=== PATIENT | male | born 1970 | race Caucasian/White ===

== ENCOUNTER 2017-02-10 07:50 | Day surgery (SDC) | payer BC ==
[~2017-02-10 07:50] MED LIST: ACETAMINOPHEN 1,000 MG/100 ML BTL IV ONE; CEFAZOLIN 1 Gram 1 GM/50 ML BAG IVPB ONE
[2017-02-10] MEDS ORDERED: BUPIVACAINE 0.25% W/EPI MPF 30ML VIAL IVP ONE (15:54)
[2017-02-10] MEDS ORDERED: HYDROCODONE/APAP 5/325MG TABLET PO ONE (15:54)
[2017-02-10] MEDS ORDERED: ALPRAZOLAM 1 MG TAB PO ONE (15:54)
[2017-02-10] MEDS ORDERED: MIDAZOLAM HCL 2MG/2ML VIAL IV ONE (16:14)
[2017-02-10] MEDS ORDERED: FENTANYL PF 100MCG/2ML VIAL IV ONE (16:14)
[2017-02-10] MEDS ORDERED: PROPOFOL 10 MG/ML VIAL IV ONE (16:14)
[2017-02-10] MEDS ORDERED: LIDOCAINE 2% MDV (20MG/ML) 20ML VIAL IV ONE (16:14)
[2017-02-10] MEDS ORDERED: *PACU ONLY* KETAMINE HCL 10 MG/ML (20ML) VIAL IV ONE (16:14)
--- NOTE | 2017-02-11 14:40 | Operative Note ---
DATE OF SURGERY: 02/10/2017 Surgeon: Robert Zhang DO PREOPERATIVE DIAGNOSIS: Left axillary mass. POSTOPERATIVE DIAGNOSIS: Left axillary mass. OPERATION: Excision of a left axillary mass. Indication: The patient is a 46-year-old male who presented to the clinic with an enlarging mass in his left axilla. This had the appearance of a probable lipoma. Imaging studies did support the same. We did discuss excision; risks, benefits, and alternatives. Risks include bleeding, infection, recurrence. He understood this fully. The patient was taking chronic narcotics; therefore, postop pain control was discussed. I let him know that I would not give him anything stronger than his 10 mg of hydrocodone that he takes 3-4 times a day. PROCEDURE: Therefore, after consent was signed and questions answered, the patient was taken to the operating room and placed in a supine position. Local and IV sedation was given per the department of anesthesia. The patient's left axillary region was shaved of hair and prepped and draped in the usual fashion. The area with the open mass was anesthetized with a total of 4 mL of 0.25% Sensorcaine with epinephrine. A 4 cm incision was made. This was carried down through the subcutaneous tissues to the capsule of the lipoma. This was dissected free from surrounding tissue and passed off the field. The wound was then closed with 3-0 and 4-0 Vicryl. He tolerated the procedure well. Final pathology pending. FINDINGS AT THE TIME OF SURGERY: A 4 x 3 cm subcutaneous mass under the subcu. CC: ITZ SAMANO MD, FACP [facility]
== END 2017-02-10 12:10 | disposition home or self-care (01) ==
LOC: SUR 07:50
PROVIDERS: ATTEND Surgery
DX: D17.1 Benign lipomatous neoplasm of skin and subcutaneous tissue of trunk (principal); I10 Essential (primary) hypertension
CPT/HCPCS: 11406; 12032; 00300; J3010; J0690

== ENCOUNTER 2017-04-17 12:04 | Day surgery (SDC) | payer BC ==
[2017-04-17] MEDS ORDERED: LIDOCAINE 2% MDV (20MG/ML) 20ML VIAL IV ONE (12:05)
[2017-04-17] MEDS ORDERED: PROPOFOL 10 MG/ML VIAL IV ONE (12:05)
[2017-04-17] MEDS ORDERED: FENTANYL PF 100MCG/2ML VIAL IV ONE (12:05)
--- NOTE | 2017-04-18 12:40 | Operative Note ---
DATE OF SURGERY: 04/17/2017 OPERATION: COLONOSCOPY with random biopsy. PREOPERATIVE DIAGNOSIS: Diarrhea, hematochezia. POSTOPERATIVE DIAGNOSES: 1. Rule out microscopic colitis. 2. Internal hemorrhoids. PREPARATION QUALITY: Good. ESTIMATED BLOOD LOSS: Minimal. SPECIMENS: Right colon and left colon. COMPLICATIONS: None apparent. PROCEDURE: After informed consent was obtained from the patient, he was placed in the left lateral decubitus position in the endoscopy suite, sedated and monitored by the department of anesthesia. Digital rectal examination was unremarkable. A well-lubricated [id number] colonoscope was inserted into the rectum and advanced to the cecum. The cecum, terminal ileum, ascending colon, transverse colon, descending colon, sigmoid colon, and rectum were carefully inspected. Random biopsies were obtained from the right colon and left colon. There was perhaps some very mild subtle loss of vascularity in the descending colon but that may have been partially due to some residual mucus that was adherent to the mucosa. Despite rinsing, there were very perhaps subtle changes noted as aforementioned. The rectum was unremarkable in forward views. J-turn views did reveal some mildly enlarged internal hemorrhoids. The endoscope was straightened, the rectal ampulla deflated, and the endoscope was removed. RECOMMENDATIONS: We will check celiac antibodies and await the results of biopsies. Would recommend a repeat colonoscopy in 10 years. As always, thank you for allowing me to participate in the healthcare of your patients. CC: ITZ SAMANO MD, FACP [facility]
== END 2017-04-17 14:05 | disposition home or self-care (01) ==
LOC: HOP 12:04 → LAB 14:05
PROVIDERS: ATTEND Internal Medicine Gastroenterology
DX: K92.1 Melena (principal); R19.7 Diarrhea, unspecified; K64.8 Other hemorrhoids; I10 Essential (primary) hypertension
CPT/HCPCS: 45380; 00810; J3010

== ENCOUNTER 2019-06-15 02:04 | Observation (INO) | payer BC ==
[2019-06-15] MEDS ORDERED: 0.9 % SODIUM CHLORIDE 1,000 ML BAG IV ONE (02:09)
[2019-06-15] MEDS ORDERED: KETOROLAC 30 MG/ML VIAL IVP ONE (02:09)
[2019-06-15] MEDS ORDERED: MORPHINE SULFATE 5 MG/ML VIAL IVP ONE ×3 (02:09→04:03)
--- NOTE | 2019-06-15 02:14 | Emergency Department Record ---
History of Present Illness - General Chief Complaint: Pain Stated Complaint: RIB PAIN Time Seen by Provider: 06/15/19 02:08 Source: Patient Mode of Arrival: Ambulatory Limitations: No limitations - History of Present Illness Initial Comments: 48 yo male presents with left rib pain. He reports has a chronic cough. The cough has been on going for about 3 years. He frequently coughs so hard he vomits. On Friday at 3pm he was coughing and sneezed simultaneously. He felt a pop over the left lower ribs. He has had pain in this area since then. The p ain has gradually been worsening. He has pain with any movement, breathing, coughing or changes of position. No fever. No hemoptysis. No abdominal pain. He has had the cough for years. His PCP has informed him he thinks it allergy related. MD Complaint: Chest pain (Left rib) -: Days(s) Onset: Other (With coughing) Pain Location: Left chest Severity: Severe Quality: Aching Consistency: Constant Improves With: Remaining still Worsens With: Inspiration, Movement, Palpation Context: Other Anginal Symptoms: Other Other Symptoms: Cough Treatments Prior to Arrival: Other - Related Data Home Medications Medication Instructions Recorded Confirmed Last Taken Amlodipine Besylate [Norvasc] 10 mg PO DAILY 06/15/19 06/15/19 06/14/19 Cholecalciferol (Vitamin D3) 2,000 unit PO DAILY 06/15/19 06/15/19 06/14/19 [Vitamin D3] Hydrocodone/Acetaminophen 1 tab PO Q4HR PRN 06/15/19 06/15/19 06/15/19 [Hydrocodone/Acetaminophen 10mg/325mg] Omeprazole 20 mg PO BID 06/15/19 06/15/19 06/14/19 Allergies Allergy/AdvReac Type Severity Reaction Status Date / Time No Known Drug Allergies Allergy Verified 02/03/17 16:02 Review of Systems Constitutional: Denies: Chills, Fever, Malaise, Weakness Eyes: Denies: Eye discharge ENT: Reports: Congestion. Denies: Throat pain Respiratory: Reports: Cough, Dyspnea. Denies: Stridor, Wheezes Cardiovascular: Reports: Chest pain (left ribs). Denies: Edema, Palpitations, Syncope Endocrine: Denies: Fatigue, Polydipsia, Polyuria Gastrointestinal: Reports: Vomiting (with coughing). Denies: Abdominal pain, Diarrhea Genitourinary: Denies: Dysuria, Frequency, Hematuria Musculoskeletal: Reports: Myalgia. Denies: Arthralgia, Back pain, Joint swelling, Neck pain Skin: Denies: Bruising, Change in color, Rash Neurological: Denies: Headache Psychiatric: Denies: Anxiety Hematological/Lymphatic: Denies: Easy bleeding, Easy bruising Past Medical History - SOCIAL HISTORY Smoking Status: Never smoker Alcohol Use: Heavy Drug Use: None - RESPIRATORY Hx Respiratory Disorders: No - CARDIOVASCULAR Hx Cardio Disorders: Yes Hx Hypertension: Yes - NEURO Hx Neuro Disorders: No - GI Hx GI Disorders: Yes Hx Abdominal Pain: Yes Hx Reflux: Yes Hx Rectal Bleeding: Yes Hx Ulcer: Yes (in past 2014;) Comment:: diarrhea - Hx Genitourinary Disorders: Yes Hx Kidney Stones: Yes (in past; 2002 had litho) - ENDOCRINE Hx Endocrine Disorders: No - MUSCULOSKELETAL Hx Musculoskeletal Disorders: Yes - PSYCH Hx Psych Problems: No - HEMATOLOGY/ONCOLOGY Hx Hematology/Oncology Disorders: No Family Medical History Any Significant Family History?: Yes Hx Cancer: Mother *Cancer Comment: smoker Hx Diabetes: Brother/Sister Hx Heart Disease: Mother Hx HTN: Brother/Sister Hx Resp Disorders: Mother Hx Stroke: Brother/Sister Physical Exam - General General Appearance: Alert, Oriented x3, Cooperative, No acute distress Limitations: No limitations - Head Head exam: Atraumatic, Normal inspection - Eye Eye exam: Normal appearance, PERRL. negative: Conjunctival injection, Scleral icterus - ENT ENT exam: Normal exam, Mucous membranes moist Ear exam: Normal external inspection Nasal Exam: Normal inspection Mouth exam: Normal external inspection - Neck Neck exam: Normal inspection, Full ROM - Respiratory Respiratory exam: Normal lung sounds bilaterally, Chest wall tenderness (Very reporductible left lower ribs, lateral, normal inspection, no crepitus). negative: Accessory muscle use, Prolonged expiratory, Rhonchi, Stridor, Wheezes - Cardiovascular Cardiovascular Exam: Normal rhythm, Normal heart sounds, Tachycardia - GI/Abdominal GI/Abdominal exam: Soft, Other (No left upper quadrant tenderness, soft, no mass). negative: Distended, Guarding, Tenderness - Rectal Rectal exam: Deferred - exam: Deferred - Extremities Extremities exam: Normal inspection - Back Back exam: Denies: CVA tenderness (R), CVA tenderness (L), Paraspinal tenderness, Tenderness - Neurological Neurological exam: Alert, Oriented X3 - Psychiatric Psychiatric exam: Normal affect, Normal mood. negative: Agitated, Anxious - Skin Skin exam: Dry, Intact, Normal color, Warm Course - Reevaluation(s) Reevaluation #1: 06/15/19 02:34 The CBC was reviewed No acute process 06/15/19 02:44 Hr and RR improved after pain medications 06/15/19 03:[address] was reviewed No acute process noted. No PE, no infiltrate, no pneumothorax noted. 06/15/19 04:[address] was discussed with the patient. He is still not controlled regarding his pain. He remains tachycardic and significant pain. I recommend admission for observation and pain control. 06/15/19 04:10 Medical Decision Making - Lab Data Result diagrams: 06/15/19 02:20 06/15/19 02:20 Disposition Disposition: Admit Clinical Impression: Chest wall muscle strain, Hyperglycemia Chest pain Qualifiers: Chest pain type: unspecified Qualified Code(s): R07.9 - Chest pain, unspecified Disposition: Acute Care Hospital Transfer Decision to Admit: Admit from ER Decision to Admit Date: 06/15/19 Decision to Admit Time: 04:04 Condition: (2) Stable Forms: Patient Portal Access Time of Disposition: 04:04 Quality - Quality Measures Quality Measures: N/A - Blood Pressure Screening Does Patient Have Any of the Following: Active Dx of HTN Blood Pressure Classification: Hypertensive Reading Systolic Measurement: 154 Diastolic Measurement: 109 Screening for High Blood Pressure: Patient Exclusion, Hx of HTN [[id number]]
[2019-06-15 02:27] LABS: ABSOLUTE NEUTROPHIL COUNT 6.56; BASO % 0.6 % (0-6); EOS % 1.1 % (0-6); GRAN % 63.5 % (47-80); HEMATOCRIT 43.7 % (42.0-52.0); HEMOGLOBIN 15.5 gm/dl (14.0-18.0); LYMPH % 24.2 % (16-45); MEAN CELL VOLUME 94.8 fl (81-97); MEAN CORPUSCULAR HEMOGLOBIN 33.6 pg (27-33); MEAN CORPUSCULAR HGB CONC 35.5 g/dl (32-36); MEAN PLATELET VOLUME 10.5 fl (7.4-10.4); MONO % 10.6 % (0-9); PLATELET COUNT 289 K/uL (130-400); RED BLOOD COUNT 4.61 M/uL (4.40-5.70); RED CELL DISTRIBUTION WIDTH 13.1 % (11.5-14.5); WHITE BLOOD COUNT W/O DIFF 10.3 K/uL (4.2-12.2)
[2019-06-15] MEDS ORDERED: BENZONATATE 100 MG CAPSULE PO ONE (02:28)
[2019-06-15] MEDS ORDERED: LIDOCAINE 5% PATCH TOP ONE (02:34)
[2019-06-15 02:38] LABS: BLOOD UREA NITROGEN 6 mg/dL (6-20); CREATININE 0.9 mg/dL (0.7-1.2); EST GLOMERULAR FILTRATION RATE > 60 mL/min
[2019-06-15 02:41] LABS: GLUCOSE,RANDOM 203 mg/dL (74-109)
--- NOTE | 2019-06-15 03:45 | CT ANGIOGRAM REPORT ---
EXAMINATION: CT Angiography of the Thorax EXAM DATE: 06/15/2019 3:37 AM TECHNIQUE: Standard protocol CT angiogram images were obtained through the chest following the admini stration of intravenous contrast. Coronal and sagittal MIP 3-D reformations were performed. IV Contrast: The amount and type of contrast are recorded in the medical record. INDICATION: left chest pain, cough,. COMPARISON: 09/08/2014 ENCOUNTER: Not applicable FINDINGS: Pulmonary Artery: No pulmonary embolism is present. Aorta: No thoracic aortic aneurysm or dissection is present. Right Heart Strain: None. Heart : There is no pericardial effusion. Clemencia and Mediastinum: No lymphadenopathy. Lung Parenchyma: Normal. Central Airways: Normal. Pleural Effusion: None. Upper Abdomen: Unremarkable. Musculoskeletal and Chest Wall: The gallbladder is absent and there are surgical clips in the right u pper quadrant compatible with post cholecystectomy changes. IMPRESSION: 1. No evidence of acute pulmonary embolus or other acute abnormalities. Dictated by: Adelita Barr MD on 06/15/2019 3:39 AM. .
[2019-06-15] MEDS ORDERED: 0.9 % SODIUM CHLORIDE 1000ML 1,000 ML IV ONE (04:55)
[2019-06-15] MEDS ORDERED: KETOROLAC 30 MG/ML VIAL IVP PRN (04:55)
[2019-06-15] MEDS ORDERED: MORPHINE SULFATE 5 MG/ML VIAL IVP PRN (04:55)
[2019-06-15] MEDS ORDERED: HYDROCODONE/APAP 10/325 TABLET PO PRN (04:55)
[2019-06-15] MEDS ORDERED: CYCLOBENZAPRINE 10MG TABLET PO ONE (06:13)
[2019-06-15] MEDS ORDERED: ACETAMINOPHEN 1,000 MG/100 ML BTL IVPB ONE (06:14)
[2019-06-15] MEDS: LIDOCAINE 5% PATCH TOP SCH (09:32)
[2019-06-15] MEDS: AMLODIPINE BESYLATE 5MG TAB PO SCH (09:33)
[2019-06-15] MEDS: BENZONATATE 100 MG CAPSULE PO PRN ×2 (09:33→22:33)
[2019-06-15] MEDS: ENOXAPARIN 40 MG/0.4 ML SYR SC SCH (09:33)
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
[2019-06-15] MEDS: MORPHINE SULFATE 5 MG/ML VIAL IVP PRN ×2 (10:52→22:26)
[2019-06-15] MEDS: OXYCODONE/APAP 7.5MG/325MG TABLET PO PRN ×3 (13:37→22:31)
[2019-06-16] MEDS: OXYCODONE/APAP 7.5MG/325MG TABLET PO PRN ×3 (09:51→22:33)
[2019-06-16] MEDS: LIDOCAINE 5% PATCH TOP SCH (09:55)
[2019-06-16] MEDS: ENOXAPARIN 40 MG/0.4 ML SYR SC SCH (09:55)
[2019-06-16] MEDS: AMLODIPINE BESYLATE 5MG TAB PO SCH (09:55)
[2019-06-16 11:23] LABS: C-REACTIVE PROTEIN 2.01 mg/dL (<0.5)
[2019-06-16] MEDS: MORPHINE SULFATE 5 MG/ML VIAL IVP PRN ×2 (14:56→21:59)
[2019-06-16] MEDS ORDERED: RANITIDINE HCL 150 MG TABLET PO PRN (17:47)
[2019-06-16] MEDS ORDERED: FAMOTIDINE 20MG TABLET PO ONE (18:35)
--- NOTE | 2019-06-16 18:41 | Physician Progress Note ---
Subjective - Date Date of Physician Progress Note: 06/16/19 - Subjective Subjective Comment: Reports left rib pain is slowly getting better but has needed morphine for breakthrough pain, although states the Percocet is doing a better job at controlling his pain for long periods at a time. NO new nursing concerns Objective - Vital Signs Vital Signs: Vital Signs - Last 24 Hrs Temp Pulse Pulse Resp BP Pulse Ox 06/16/19 16:00 98.2 F 107 H 17 163/113 95 06/16/19 10:00 98.9 F 106 H 17 159/102 95 06/16/19 09:00 107 H 106 H 17 06/16/19 05:00 98.2 F 95 H 18 140/89 95 06/16/19 00:00 86 18 95 06/15/19 23:17 101 H 20 162/101 96 06/15/19 21:00 100 H 20 06/15/19 20:00 98.5 F 95 H 18 153/99 95 - General General Appearance: Alert, Oriented x3, Cooperative, No acute distress Limitations: No limitations - Head Head exam: Atraumatic, Normal inspection - Eye Eye exam: Normal appearance, PERRL. negative: Conjunctival injection, Scleral icterus - ENT ENT exam: Normal exam, Mucous membranes moist Ear exam: Normal external inspection Nasal Exam: Normal inspection Mouth exam: Normal external inspection - Neck Neck exam: Normal inspection, Full ROM - Respiratory Respiratory exam: Normal lung sounds bilaterally, Chest wall tenderness (Very reporductible left lower ribs, lateral, normal inspection, no crepitus). negative: Accessory muscle use, Prolonged expiratory, Rhonchi, Stridor, Wheezes - Cardiovascular Cardiovascular Exam: Normal rhythm, Normal heart sounds, Tachycardia - GI/Abdominal GI/Abdominal exam: Soft, Tenderness (LUQ). negative: Distended, Guarding - Rectal Rectal exam: Deferred - exam: Deferred - Extremities Extremities exam: Normal inspection - Back Back exam: Denies: CVA tenderness (R), CVA tenderness (L), Paraspinal tenderness, Tenderness - Neurological Neurological exam: Alert, Oriented X3 - Psychiatric Psychiatric exam: Normal affect, Normal mood. negative: Agitated, Anxious - Skin Skin exam: Dry, Intact, Normal color, Warm Assessment and Plan - Assessment and Plan (1) Chest pain Current Visit: Yes Status: Acute Qualifiers: Chest pain type: unspecified Qualified Code(s): R07.9 - Chest pain, unspecified Base Code: R07.9 - CHEST PAIN, UNSPECIFIED Comment: 06/16/2019 - Chest wall/rib pain after cough/sneeze episode, likely chostochondritis or occult rib fracture - Non-smoker - CTA negative for PE or rib fracture, pneumothorax - Has had chronic cough for over 3 year- PCP diagnosed as chronic allergies - Telemetry - IS - Change [place] to Percoct 7.5 Q4hr PRN for pain control, Toradol 15mg Q8hr PRN, Lidoderm patch - Has had improvement, will plan to DC home tomorrow with short course of Percocet for suspected occult rib fracture - Recommend pulmonary consult as outpatient for chronic cough, chronic ihalation of airborn particles at work site to rule out inhalation injury or cause (2) HTN (hypertension) Current Visit: Yes Status: Acute Base Code: I10 - ESSENTIAL (PRIMARY) HYPERTENSION Comment: 06/16/2019 - Tachycardiac, tachypenic, hypertensive in ED due to distress from pain, has since normalized since admission - Continue Norvasc 10mg QD (3) DVT prophylaxis Current Visit: Yes Status: Acute Base Code: Z29.9 - ENCOUNTER FOR PROPHYLAC TIC MEASURES, UNSPECIFIED Comment: 06/16/2019 - Lovenox 40mg QD (4) Full code status Current Visit: Yes Status: Acute Base Code: Z78.9 - OTHER SPECIFIED HEALTH STATUS Results - Labs Result Diagrams: 06/15/19 02:20 06/15/19 02:20 Labs Last 24 Hours: Laboratory Results - last 24 hr 06/15/19 06/15/19 02:20 02:20 ESR 7 C-Reactive Protein 2.01 H Amylase 49 Lipase 35 DVT/PE Assessment - Risk for VTE Risk for VTE: No Risk Level: Moderate Risk Assessment Date: 06/15/19 Risk Assessment Time: 10:07 VTE Orders Placed or Will Be Placed: Yes - Active Medicaitons Current Medications: Current Medications Amlodipine Besylate (Norvasc) 10 mg PO DAILY DANIELLE Last Admin: 06/16/19 09:55 Dose: 10 mg Documented by: Benzonatate (Tessalon) 100 mg PO TID PRN PRN Reason: COUGH Last Admin: 06/15/19 22:33 Dose: 100 mg Documented by: Enoxaparin Sodium (Lovenox) 40 mg SC DAILY [facility] Last Admin: 06/16/19 09:55 Dose: 40 mg Documented by: Ketorolac Tromethamine (Toradol) 15 mg IVP Q8H PRN PRN Reason: PAIN - MILD (1-4) Lidocaine (Lidoderm) 1 each TOP DAILY [facility] Last Admin: 06/16/19 09:55 Dose: 1 each Documented by: Morphine Sulfate (Morphine Sulfate) 5 mg IVP Q4H PRN PRN Reason: PAIN - SEVERE (8-10) Stop: 06/22/19 10:46 Last Admin: 06/16/19 14:56 Dose: 5 mg Documented by: Oxycodone/Acetaminophen (Percocet 7.5-325 Mg Tablet) 1 each PO Q4H PRN PRN Reason: PAIN - MILD TO MODERATE (1-7) Stop: 06/22/19 12:55 Last Admin: 06/16/19 17:53 Dose: 1 each Documented by: Ranitidine HCl (Zantac) 150 mg PO BID PRN PRN Reason: INDIGESTION AMI Plan - Labs Result Diagrams: 06/15/19 02:20 06/15/19 02:20
[2019-06-16] MEDS: BENZONATATE 100 MG CAPSULE PO PRN (22:33)
[2019-06-17] MEDS: OXYCODONE/APAP 7.5MG/325MG TABLET PO PRN (06:40)
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
[2019-06-17] MEDS ORDERED: FAMOTIDINE 20MG TABLET PO PRN (08:27)
== END 2019-06-17 09:45 | disposition home or self-care (01) ==
LOC: ER 02:04 → MEDSURG 04:23
PROVIDERS: ADMIT Internal Medicine; ATTEND Internal Medicine
DX: S29.011A Strain of muscle and tendon of front wall of thorax, initial encounter (principal); R73.9 Hyperglycemia, unspecified; R05 Cough; I10 Essential (primary) hypertension; K21.9 Gastro-esophageal reflux disease without esophagitis; Z86.14 Personal history of Methicillin resistant Staphylococcus aureus infection; Z87.442 Personal history of urinary calculi
CPT/HCPCS: 82150; 83690; 85025; 85651; 86140; 80048; 71275; G0378 ×3; Q9967; J1885; J3490; 96374; 96375; 96376; 99217; 99220; 99226; 99285; J1650; J7030